=== PATIENT | female | born 1995 | race Caucasian/White ===

== ENCOUNTER 2019-07-03 21:48 | Emergency (ER) | payer OTHER, MEDICAID ==
[2019-07-04 00:28] LABS: APPEARANCE,URINE SLIGHTLY-CLOUDY; BILIRUBIN,URINE NEGATIVE (NEGATIVE); COLOR,URINE AMBER; GLUCOSE, URINE NEGATIVE (NEGATIVE); KETONES,URINE 20 mg/dL (NEGATIVE); LEUKOCYTE ESTERASE,URINE TRACE (NEGATIVE); NITRITE,URINE POSITIVE (NEGATIVE); PROTEIN,URINE 30 mg/dL (NEGATIVE); URINE SPECIFIC GRAVITY 1.029; UROBILINOGEN,URINE NEGATIVE mg/dL (<2.0)
[2019-07-04 00:49] LABS: ABSOLUTE LYMPHOCYTES (AUTO) 0.7 10^3/uL (0.5-4.7); ABSOLUTE MONOCYTES (AUTO) 0.2 10^3/uL (0.1-1.4); ABSOLUTE NEUT (AUTO) 7.4 10^3/uL (1.7-8.2); BASOPHILS % (AUTO) 0.2 % (0-2); EOSINOPHILS % (AUTO) 0.1 % (0-6); HEMATOCRIT 41.9 % (36.0-47.0); HEMOGLOBIN 14.4 g/dL (12.0-15.5); MEAN CORPUSCULAR HEMOGLOBIN 29.1 pg (27.0-33.4); MEAN CORPUSCULAR HGB CONC 34.3 g/dL (32.0-36.0); MEAN CORPUSCULAR VOLUME 85 fl (80-97); MONOCYTES % (AUTO) 2.8 % (3-13); PLATELET COUNT 285 10^3/uL (150-450); RED BLOOD COUNT 4.94 10^6/uL (3.72-5.28); RED CELL DISTRIBUTION WIDTH 13.6 % (11.5-14.0); SEGMENTED NEUTROPHILS % (AUTO) 88.9 % (42-78); TOTAL CELLS COUNTED % (AUTO) 100 %; WHITE BLOOD COUNT 8.3 10^3/uL (4.0-10.5)
[2019-07-04 01:06] LABS: ALBUMIN 4.6 g/dL (3.5-5.0); ALKALINE PHOSPHATASE 76 U/L (38-126); ANION GAP 12 (5-19); ASPARTATE AMINO TRANSFERASE 17 U/L (14-36); BILIRUBIN,DIRECT 0.1 mg/dL (0.0-0.4); BILIRUBIN,TOTAL 0.8 mg/dL (0.2-1.3); BLOOD UREA NITROGEN 14 mg/dL (7-20); CALCIUM 9.3 mg/dL (8.4-10.2); CARBON DIOXIDE 24 mmol/L (22-30); CHLORIDE 104 mmol/L (98-107); GLUCOSE 108 mg/dL (75-110); POTASSIUM 4.3 mmol/L (3.6-5.0); TOTAL PROTEIN 8.3 g/dL (6.3-8.2)
[2019-07-04] MEDS ORDERED: CEFTRIAXONE INJ 1000 MG VIAL IV ONE (03:43)
[2019-07-04] MEDS ORDERED: ONDANSETRON HCL INJ/PF 4 MG/2 ML SDV IV ONE (03:43)
[2019-07-04] MEDS ORDERED: RINGERS SOLUTION,LACTATED 1,000 ML IV ONE (03:44)
--- NOTE | 2019-07-04 03:46 | ER Document Report ---
ED General - General Chief Complaint: Nausea/Vomiting Stated Complaint: VOMITING/DIARRHEA/LIGHT HEADED Time Seen by Provider: 07/04/19 03:34 Primary Care Provider: OCTAVIO TONG MD [Primary Care Provider] - Follow up as needed TRAVEL OUTSIDE OF THE [place] IN LAST 30 DAYS: No - Related Data Allergies/Adverse Reactions: No Known Allergies Allergy (Unverified 07/03/19 22:48) Past Medical History - Social History Smoking Status: Never Smoker Family History: None - Noncontributory Patient has suicidal ideation: No Patient has homicidal ideation: No - Past Medical History Cardiac Medical History: Reports: Hx Hypertension Physical Exam - Vital signs Vitals: Temp Pulse Resp BP Pulse Ox 100.0 F 111 H 20 126/92 H 96 07/03/19 22:11 07/03/19 22:11 07/03/19 22:11 07/03/19 22:11 07/03/19 22:11 - Notes Notes: Patient presents emergency [place] with nausea vomiting diarrhea is been going on all day. She has not been able keep anything down. The diarrhea is loose. She has not noticed any blood or antibiotics in it. Denies any fevers abdominal pain or dysuria. Sick 2 nights ago her son was His past medical history stemming for hypertension she has no diabetes or heart disease. Social history does not smoke or drink at all. Last mental period was May 28. Sometimes she is late family history is noncontributory PHYSICAL EXAMINATION: Vital signs are noted she is no acute distress GENERAL: Well-appearing, well-nourished and in no acute distress. HEAD: Atraumatic, normocephalic. EYES: Pupils equal round and reactive to light, extraocular movements intact, sclera anicteric, conjunctiva are normal. ENT: nares patent, oropharynx clear without exudates. Slightly dry mucous membranes. NECK: Normal range of motion, supple without lymphadenopathy LUNGS: Breath sounds clear to auscultation bilaterally and equal. No wheezes rales or rhonchi. HEART: Rapid and regular ABDOMEN: Soft, nontender, normoactive bowel sounds. No guarding, no rebound. No masses appreciated. EXTREMITIES: Normal range of motion, no pitting or edema. No cyanosis. NEUROLOGICAL: No focal neurological deficits. Moves all extremities spontaneously and on command. PSYCH: Normal mood, normal affect. SKIN: Warm, Dry, normal turgor, no rashes or lesions noted. Course - Re-evaluation Re-evalutation: 07/04/19 05:25 ED patient remained stable she was given a liter of Ringer's lactate and Zofran as well as Rocephin is feeling better. Exam abdomen soft nontender she is tolerating liquids well. Medical decision making patient presents with vomiting and diarrhea suspect probably has a viral syndrome. Evidence of UTI do not think she has Julio she looks well can be discharged home - Vital Signs Vital signs: Temp Pulse Resp BP Pulse Ox 98.9 F 81 17 134/71 H 98 07/04/19 04:16 07/04/19 04:16 07/04/19 04:16 07/04/19 04:16 07/04/19 04:16 - Laboratory Result Diagrams: 07/04/19 00:26 07/04/19 00:26 Laboratory results interpreted by me: 07/04/19 07/04/19 07/04/19 00:07 00:26 00:26 Lymph % (Auto) 8.0 L [place] % (Auto) 2.8 L Seg Neutrophils % 88.9 H Total Protein 8.3 H Urine Protein 30 H Urine Ketones 20 H Urine Blood MODERATE H Urine Nitrite POSITIVE H Ur Leukocyte Esterase TRACE H Discharge - Discharge Clinical Impression: Vomiting and diarrhea, UTI (urinary tract infection) Disposition: HOME, SELF-CARE Instructions: Urinary Tract Infection ([facility]), Nitrofurantoin ([facility]), Diarrhea, Nonspecific ([facility]), Nausea or Vomiting, Nonspecific ([facility]) Additional Instructions: Please review the discharge instructions Follow-up with your family doctor in 2 to 3 days if not better return to the ED if he get worse Drink plenty of fluids. Stay on liquids for 8 hours then bland diet for the next 2 days avoiding fatty greasy foods Prescriptions: Nitrofurantoin/Nitrofuran Mac [Macrobid 100 mg Capsule] 1 tab PO BID #10 capsule Ondansetron HCl [Zofran 4 mg Tablet] 1 tab PO Q4H PRN #10 tablet PRN Reason: Referrals: OCTAVIO TONG MD [Primary Care Provider] - Follow up as needed
[2019-07-04 05:40] VITALS: BP 133/64
== END 2019-07-04 05:40 | disposition home or self-care (01) ==
LOC: ER 21:48
DX: N39.0 Urinary tract infection, site not specified (principal); R11.2 Nausea with vomiting, unspecified; R19.7 Diarrhea, unspecified; I10 Essential (primary) hypertension
CPT/HCPCS: 36415; 85025; 81025; 80053; 81001; J0696; J2405; J7120; 87086; 87088